=== PATIENT | male | born 1970 | race Caucasian/White ===

== ENCOUNTER → 2016-09-09 | Outpatient (CLI) | payer BC ==
--- NOTE | 2016-09-09 11:57 | NM ---
EXAMINATION: Nuclear medicine myocardial perfusion study with exercise stress test. HISTORY: Chest pain. PROCEDURE: Patient exercised according to Elias protocol for 10 minutes and 7 seconds and achieved maximal hear t rate of 155 beats per minute. Adequate exercise. Following intravenous administration of 8.8 and 31.0 mCi of technetium 99m sestamibi, stress and r est SPECT images including gating imaging was performed. FINDINGS: Stress and rest myocardial SPECT images demonstrates uniform tracer uptake throughout the left ventr icular myocardium. Review of gated images demonstrates normal wall motion, contractility and wall thickening. The left ventricular ejection fraction is 59 %. The left ventricular chamber size is normal. IMPRESSION: 1. No evidence of myocardial ischemia. 2. Normal ventricular chamber size and function with ejection fraction of 59%.
--- NOTE | 2016-09-09 19:05 | PCM.PRNOTE ---
- Free Text/Narrative Note: Procedure: Cardiolite exercise stress test Resting blood pressure 122/86, pulse 89 Patient exercised per Elias protocol 10 minutes and 7 seconds and achieved a maximum heart rate of 155 beats per minute which was 89% of age-predicted maximum heart rate. Mets: 12.8 double product 36282 Resting EKG revealed normal sinus rhythm With exertion, no significant ST-T changes were noted. Test stopped at target heart rate. No complaints of chest pain during exercise or recovery with an unremarkable recovery phase Impression: #1. Negative stress test for ischemic ST-T changes #2. Good exercise tolerance #3. Cardiolite portion of test pending
== END ==
LOC: MW.NM 06:38
PROVIDERS: ATTEND Emergency Medicine
DX: R07.9 Chest pain, unspecified (principal)
CPT/HCPCS: 78452; 93017; A9500

== ENCOUNTER → 2016-09-11 | Outpatient (CLI) | payer BC ==
--- NOTE | 2016-09-11 15:25 | CR ---
EXAMINATION: Two-view chest (PA and Lateral views). HISTORY: Other signs and symptoms. FINDINGS: The trachea is midline. The cardiomediastinal silhouette is within normal limits. No pulmonary infil trates, effusions or pneumothorax. Osseous structures appear unremarkable. IMPRESSION: No acute cardiopulmonary process.
== END ==
LOC: MW.CHFP 13:22
PROVIDERS: ATTEND Emergency Medicine
DX: R50.9 Fever, unspecified (principal); R68.89 Other general symptoms and signs
CPT/HCPCS: 36415; 71020; 71020-26; 85025; 86140; 87804

== ENCOUNTER 2018-03-09 17:36 | Emergency (ER) | payer BC ==
--- NOTE | 2018-03-09 17:52 | EDM.PDOC ---
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 Time Seen by Provider: 03/09/18 17:51 Source of Information: Reports: Patient History Limitations: Reports: No Limitations - History of Present Illness INITIAL COMMENTS - FREE TEXT/NARRATIVE: HISTORY AND PHYSICAL: History of present illness: Patient is a 47-year-old male who presents to the emergency room with complaints of a laceration to his left ulnar surface of his wrist. 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 No current bleeding noted. Patient has full range of motion and strength of the fingers. This does not appear to have any tendon involvement. Patient is unsure of his last tetanus update. Review of systems: As per history of present illness and below otherwise all systems reviewed and negative. Past medical history: As per history of present illness and as reviewed below otherwise noncontributory. Surgical history: As per history of present illness and as reviewed below otherwise noncontributory. Social history: No reported history of drug or alcohol abuse. Family history: As per history of present illness and as reviewed below otherwise noncontributory. Physical exam: General: Well-developed and well-nourished 47-year-old male. Alert and oriented. Nontoxic appearing and in no acute distress. HEENT: Atraumatic, normocephalic, pupils equal and reactive bilaterally, negative for conjunctival pallor or scleral icterus, mucous membranes moist, throat clear, neck supple, nontender, trachea midline. No drooling or trismus noted. No meningeal signs Lungs: Clear to auscultation, breath sounds equal bilaterally, chest nontender. Heart: S1S2, regular rate and rhythm without overt murmur Abdomen: Soft, nondistended, nontender. Negative for masses or hepatosplenomegaly. Negative for costovertebral tenderness. Pelvis: Stable nontender. Genitourinary: Deferred. Rectal: Deferred. Skin: 3.5 cm linear laceration to the left wrist, lateral ulnar surface. Does not appear to have any tendon involvement. Intact, warm, dry. No lesions or rashes noted. Extremities: Moves all extremities per self without difficulty or deficits. Equal and strong grasp of upper extremities. Capillary refill less than 3 seconds. Strong radial pulse bilaterally., negative for cords or calf pain. Neurovascular unremarkable. Neuro: Awake, alert, oriented. Cranial nerves II through XII unremarkable. Cerebellum unremarkable. Motor and sensory unremarkable throughout. Exam nonfocal. Notes: Tdap was updated. Appears to have no tendon involvement. Area was the anesthetized with 1% lidocaine, cleansed with chlorhexidine and wound wash irrigate the area. Patient tolerated well. 5-0 nylon, #6 interrupted sutures applied. Area was cleansed and bacitracin nonstick dressing applied. Diagnostics: None Therapeutics: 1% lidocaine, wound care Prescription: None Impression: Laceration Plan: 1. Rest, ice, elevate the affected extremity. Keep the wound clean and dry. Continue to monitor for signs of infection. Sutures to the removed in 7-10 days. 2. Tylenol and/or ibuprofen as needed for pain management. 3. Follow-up with your primary caregiver in the next 1-2 days. Return to the ED as needed and as discussed. Definitive disposition and diagnosis as appropriate pending reevaluation and review of above. Onset: Today Duration: Minutes: Location: Reports: Upper Extremity, Left Left Wrist Pain Score (Numeric/FACES): 0 - Related Data Allergies Allergy/AdvReac Type Severity Reaction Status Date / Time No Known Allergies Allergy Verified 01/29/15 14:58 Home Meds: Home Meds . [No Known Home Meds] 03/09/18 [History] ED ROS GENERAL - Review of Systems Review Of Systems: ROS reveals no pertinent complaints other than HPI. ED EXAM, SKIN/RASH Exam: See Below (See dictation) ED SKIN PROCEDURES - Laceration/Wound Repair left lateral wrist (ulnar side) Lac/Wound length In cm: 3.5 Appearance: Subcutaneous, Linear Distal NVT: Neuro & Vascular Intact, No Tendon Injury Anesthetic Type: Local Local Anesthesia - Lidocaine (Xylocaine): 1% Plain Local Anesthetic Volume: 3cc Skin Prep: Chlorhexidine (Hibiciens), Saline, Sterile Drape Saline Irrigation (cc's): 50 Exploration/Debridement/Repair: Wound Explored, No Foreign Material Found Closed with: Sutures Suture Size: other (5-0) # of Sutures: 6 Suture Type: Nylon Drain Placement: No Sterile Dressing Applied: Provider Tetanus Status Addressed: Yes Complications: No Course - Vital Signs Last Recorded V/S: Last Vital Signs Temp 97.5 F 03/09/18 17:50 Pulse 98 03/09/18 17:50 Resp 18 03/09/18 17:50 BP 161/106 H 03/09/18 17:50 Pulse Ox 98 03/09/18 17:50 - Orders/Labs/Meds Orders: Active Orders 24 hr Category Date Time Status Vaccines to be Administered [RC] PER UNIT ROUTINE Care 03/09/18 18:01 Active Meds: Medications Discontinued Medications Generic Name Dose Route Start Last Admin Trade Name Tonja PRN Reason Stop Dose Admin Bacitracin 1 dose 03/09/18 18:00 03/09/18 18:27 Bacitracin Oint 1 Gm TOP 03/09/18 18:01 1 dose ONETIME ONE Administration Diphtheria/Tetanus/Acell Pertussis 0.5 ml 03/09/18 18:01 03/09/18 18:25 Adacel IM 03/09/18 18:02 0.5 ml .ONCE ONE Administration Lidocaine HCl 5 ml 03/09/18 18:00 03/09/18 18:25 Xylocaine-Mpf 1% INJECT 03/09/18 18:01 5 ml ONETIME ONE Administration Departure - Departure Time of Disposition: 18:34 Disposition: Home, Self-Care 01 Clinical Impression: Laceration - Discharge Information Instructions: Laceration Care, Adult, [id number] Referrals: PCP,None [Primary Care Provider] - Forms: ED Department Discharge Additional Instructions: The following information is given to patients seen in the emergency department who are being discharged to home. This information is to outline your options for follow-up care. We provide all patients seen in our emergency department with a follow-up referral. The need for follow-up, as well as the timing and circumstances, are variable depending upon the specifics of your emergency department visit. If you don't have a primary care physician on staff, we will provide you with a referral. We always advise you to contact your personal physician following an emergency department visit to inform them of the circumstance of the visit and for follow-up with them and/or the need for any referrals to a consulting specialist. The emergency department will also refer you to a specialist when appropriate. This referral assures that you have the opportunity for follow-up care with a specialist. All of these measure are taken in an effort to provide you with optimal care, which includes your follow-up. Under all circumstances we always encourage you to contact your private physician who remains a resource for coordinating your care. When calling for follow-up care, please make the office aware that this follow-up is from your recent emergency room visit. If for any reason you are refused follow-up, please contact the [facility] Emergency Department at and asked to speak to the emergency department charge nurse. [facility] [address] [place] [id number] 1. Rest, ice, elevate the affected extremity. Keep the wound clean and dry. Continue to monitor for signs of infection. Sutures to the removed in 7-10 days. 2. Tylenol and/or ibuprofen as needed for pain management. 3. Follow-up with your primary caregiver in the next 1-2 days. Return to the ED as needed and as discussed. - My Orders Last 24 Hours: My Active Orders 03/09/18 18:01 Vaccines to be Administered [RC] PER UNIT ROUTINE - Assessment/Plan Last 24 Hours: My Active Orders 03/09/18 18:01 Vaccines to be Administered [RC] PER UNIT ROUTINE
[2018-03-09] MEDS ORDERED: Bacitracin Oint 1 GM U/D Packet TOP ONE (18:00)
[2018-03-09] MEDS ORDERED: Diphtheria,Pertussis(Acell),Tetanus Vaccine 0.5 ML Syringe IM ONE (18:01)
== END 2018-03-09 18:41 | disposition home or self-care (01) ==
LOC: MW.ED 17:36
DX: S61.512A Laceration without foreign body of left wrist, initial encounter (principal); W31.9XXA Contact with unspecified machinery, initial encounter; Z23 Encounter for immunization
CPT/HCPCS: 12002; 90471; 90715; 99282-25; 99283

== ENCOUNTER 2018-09-10 12:43 | Observation (INO) | payer BC ==
[2018-09-10] MEDS ORDERED: Metoprolol Tartrate 5 MG/5 ML SDV ONE (12:53)
[2018-09-10] MEDS ORDERED: Aspirin 81 MG Tab.Chew ONE (12:53)
[2018-09-10] MEDS ORDERED: Aspirin 81 MG Tab.Chew PO ONE (12:54)
[2018-09-10] MEDS ORDERED: Sodium Chloride 0.9% 10 ML Syringe FLUSH PRN (12:54)
[2018-09-10] MEDS ORDERED: Sodium Chloride 0.9% 2.5 ML Syringe FLUSH PRN (12:54)
[2018-09-10] MEDS: Metoprolol Tartrate 5 MG/5 ML SDV IVPUSH SCH ×3 (12:57→13:46)
[2018-09-10] MEDS ORDERED: Sodium Chloride 0.9% 250 ML IV ONE (13:04)
--- NOTE | 2018-09-10 13:15 | EDM.PDOC ---
ED HPI GENERAL MEDICAL PROBLEM - General Chief Complaint: Cardiovascular Problem Stated Complaint: HIGH HEART RATE Time Seen by Provider: 09/10/18 12:44 Source of Information: Reports: Patient History Limitations: Reports: No Limitations - History of Present Illness INITIAL COMMENTS - FREE TEXT/NARRATIVE: History of present illness: []Patient stated he started having palpitations about an hour prior to coming in and just didn't feel right. Stated he has chest discomfort like a "pinching" . Denies shortness of breath, cough, fevers, chills or any pain. He is on metoprolol for hypertension and is followed by Dr. Charles. He feels any abnormalities to come to the ER immediately. Review of systems: As per history of present illness and below otherwise all systems reviewed and negative. Past medical history: As per history of present illness and as reviewed below otherwise noncontributory. Surgical history: As per history of present illness and as reviewed below otherwise noncontributory. Social history: No reported history of drug or alcohol abuse. Family history: As per history of present illness and as reviewed below otherwise noncontributory. Physical exam: General: Well developed, well nourished in NAD HEENT: Atraumatic, normocephalic, pupils reactive, negative for conjunctival pallor or scleral icterus, mucous membranes moist, throat clear, neck supple, nontender, trachea midline. Lungs: Clear to auscultation, breath sounds equal bilaterally, chest nontender. Heart: S1S2, regular, negative for clicks, rubs, or JVD. Abdomen: NABS, Soft, nondistended, nontender. Negative for masses or hepatosplenomegaly. Negative for costovertebral tenderness. Pelvis: Stable nontender. Genitourinary: Deferred. Rectal: Deferred. Extremities: Atraumatic, negative for cords or calf pain. Neurovascular unremarkable. Neuro: Awake, alert, oriented. Cranial nerves II through XII unremarkable. Cerebellum unremarkable. Motor and sensory unremarkable throughout. Exam nonfocal. Skin:warm and dry Diagnostics: EKG, chest x-ray, CBC, chemistry, troponin, drug screen, Therapeutics: Lopressor, aspirin, nitroglycerin, IV fluid ED Course: Improved, chest pain with nitroglycerin Consult Dr. Matthews accepts patient for observation on telemetry Impression: Chest pain, controlled hypertension Prescriptions: Plan: Admit rule out RI Definitive disposition and diagnosis as appropriate pending reevaluation and review of above. Chest Pain Score (Numeric/FACES): 2 - Related Data Allergies Allergy/AdvReac Type Severity Reaction Status Date / Time No Known Allergies Allergy Verified 09/10/18 12:52 Home Meds: Home Meds Metoprolol Succinate 50 mg PO DAILY 09/10/18 [History] Past Medical History - Past Health History Medical/Surgical History: Denies Medical/Surgical History HEENT History: Reports: None Cardiovascular History: Reports: Hypertension Respiratory History: Reports: None Gastrointestinal History: Reports: None Genitourinary History: Reports: None Musculoskeletal History: Reports: None Neurological History: Reports: None Psychiatric History: Reports: None Endocrine/Metabolic History: Reports: None Hematologic History: Reports: None Immunologic History: Reports: None Oncologic (Cancer) History: Reports: None Dermatologic History: Reports: None - Infectious Disease History Infectious Disease History: Reports: None - Past Surgical History Head Surgeries/Procedures: Reports: None Social & Family History - Family History Family Medical History: Noncontributory - Tobacco Use Smoking Status *Q: Never Smoker - Caffeine Use Caffeine Use: Reports: Coffee - Recreational Drug Use Recreational Drug Use: No ED ROS GENERAL - Review of Systems Review Of Systems: ROS reveals no pertinent complaints other than HPI. ED EXAM, GENERAL - Physical Exam Exam: See Below (See HPI) Course - Vital Signs Last Recorded V/S: Last Vital Signs Temp 97.9 F 09/10/18 12:57 Pulse 73 09/10/18 13:45 Resp 18 09/10/18 13:45 BP 114/74 09/10/18 13:45 Pulse Ox 98 09/10/18 13:45 - Orders/Labs/Meds Orders: Active Orders 24 hr Category Date Time Status Patient Status [ADT] Stat ADT 09/10/18 13:55 Active Cardiac Monitoring [RC] . DIRECTED Care 09/10/18 12:53 Active EKG Documentation Completion [RC] STAT Care 09/10/18 12:53 Active DRUG SCREEN, URINE [URCHEM] Stat Lab 09/10/18 12:53 Ordered Nitroglycerin [Nitrostat] Med 09/10/18 13:11 Active 0.4 mg SL Q5M PRN Sodium Chloride 0.9% [Saline Flush] Med 09/10/18 12:54 Active 10 ml FLUSH ASDIRECTED PRN Sodium Chloride 0.9% [Saline Flush] Med 09/10/18 12:54 Active 2.5 ml FLUSH ASDIRECTED PRN Saline Lock Insert [OM.PC] Stat Oth 09/10/18 12:53 Ordered Medication Orders Acetaminophen (Tylenol) 650 mg PO Q4H PRN PRN Reason: Pain (mild 1-3) Nitroglycerin (Nitrostat) 0.4 mg SL Q5M PRN PRN Reason: Chest Pain Last Admin: 09/10/18 13:22 Dose: 0.4 mg Admin: 09/10/18 13:16 Dose: 0.4 mg Ondansetron HCl (Zofran) 4 mg IVPUSH Q4H PRN PRN Reason: Nausea Sodium Chloride (Saline Flush) 10 ml FLUSH ASDIRECTED PRN PRN Reason: Keep Vein Open Last Admin: 09/10/18 12:59 Dose: 10 ml Sodium Chloride (Saline Flush) 2.5 ml FLUSH ASDIRECTED PRN PRN Reason: Keep Vein Open Last Admin: 09/10/18 12:59 Dose: 2.5 ml Labs: Laboratory Tests 09/10/18 09/10/18 Range/Units 12:55 12:55 WBC 7.68 (4.0-11.0) K/uL RBC 5.33 (4.50-5.90) M/uL Hgb 16.3 (13.0-17.0) g/dL Hct 48.4 (38.0-50.0) % MCV 90.8 (80.0-98.0) fL MCH 30.6 (27.0-32.0) pg MCHC 33.7 (31.0-37.0) g/dL RDW Std Deviation 44.8 (28.0-62.0) fl RDW Coeff of Nakia 14 (11.0-15.0) % Plt Count 203 (150-400) K/uL MPV 10.40 (7.40-12.00) fL Neut % (Auto) 62.3 (48.0-80.0) % Lymph % (Auto) 27.2 (16.0-40.0) % [place] % (Auto) 5.9 (0.0-15.0) % Eos % (Auto) 3.9 (0.0-7.0) % Baso % (Auto) 0.7 (0.0-1.5) % Neut # (Auto) 4.8 (1.4-5.7) K/uL Lymph # (Auto) 2.1 (0.6-2.4) K/uL [place] # (Auto) 0.5 (0.0-0.8) K/uL Eos # (Auto) 0.3 (0.0-0.7) K/uL Baso # (Auto) 0.1 (0.0-0.1) K/uL Nucleated RBC % 0.0 /100WBC Nucleated RBCs # 0 K/uL Sodium 144 (136-148) mmol/L Potassium 3.9 (3.5-5.1) mmol/L Chloride 107 (98-107) mmol/L Carbon Dioxide 26.3 (21.0-32.0) mmol/L BUN 16 (7.0-18.0) mg/dL Creatinine 1.2 (0.8-1.3) mg/dL Est Cr Clr Drug Dosing 73.63 mL/min Estimated GFR (MDRD) > 60.0 ml/min Glucose 140 H (74-106) mg/dL Calcium 9.1 (8.5-10.1) mg/dL Total Bilirubin 1.4 H (0.2-1.0) mg/dL AST 20 (15-37) IU/L ALT 31 (14-63) IU/L Alkaline Phosphatase 110 (46-116) U/L Troponin I < 0.050 (0.000-0.056) ng/mL Total Protein 8.2 (6.4-8.2) g/dL Albumin 4.2 (3.4-5.0) g/dL Globulin 4.0 (2.6-4.0) g/dL Albumin/Globulin Ratio 1.0 (0.9-1.6) Ethyl Alcohol <3 mg/dL Meds: Medications Generic Name Dose Route Start Last Admin Trade Name Freq PRN Reason Stop Dose Admin Acetaminophen 650 mg 09/10/18 14:38 Tylenol PO Q4H PRN Pain (mild 1-3) Nitroglycerin 0.4 mg 09/10/18 13:11 09/10/18 13:22 Nitrostat SL 0.4 mg Q5M PRN Administration Chest Pain Ondansetron HCl 4 mg 09/10/18 14:38 Zofran IVPUSH Q4H PRN Nausea Sodium Chloride 10 ml 09/10/18 12:54 09/10/18 12:59 Saline Flush FLUSH 10 ml ASDIRECTED PRN Administration Keep Vein Open Sodium Chloride 2.5 ml 09/10/18 12:54 09/10/18 12:59 Saline Flush FLUSH 2.5 ml ASDIRECTED PRN Administration Keep Vein Open Discontinued Medications Generic Name Dose Route Start Last Admin Trade Name Freq PRN Reason Stop Dose Admin Aspirin 324 mg 09/10/18 12:54 09/10/18 12:59 Aspirin PO 09/10/18 12:55 324 mg ONETIME ONE Administration Aspirin Confirm 09/10/18 12:53 09/10/18 13:00 Aspirin Administered 09/10/18 12:54 Not Given Dose 324 mg .ROUTE .STK-MED ONE Sodium Chloride 250 mls @ 999 mls/hr 09/10/18 13:04 09/10/18 13:06 Normal Saline IV 09/10/18 13:19 999 mls/hr .Bolus ONE Administration Metoprolol Tartrate 5 mg 09/10/18 13:00 09/10/18 13:46 Lopressor IVPUSH 09/10/18 13:11 Not Given Q5M JARED Metoprolol Tartrate Confirm 09/10/18 12:53 09/10/18 13:00 Lopressor Administered 09/10/18 12:54 Not Given Dose 5 mg .ROUTE .STK-MED ONE Morphine Sulfate 2 mg 09/10/18 13:27 09/10/18 13:34 Morphine IVPUSH 09/10/18 13:28 2 mg ONETIME ONE Administration Ondansetron HCl 4 mg 09/10/18 13:27 09/10/18 13:34 Zofran IVPUSH 09/10/18 13:28 4 mg ONETIME ONE Administration Departure - Departure Time of Disposition: 15:12 Disposition: Refer to Observation Condition: Good Clinical Impression: Chest pain Qualifiers: Chest pain type: unspecified Qualified Code(s): R07.9 - Chest pain, unspecified - My Orders Last 24 Hours: My Active Orders 09/10/18 12:53 Cardiac Monitoring [RC] . DIRECTED EKG Documentation Completion [RC] STAT DRUG SCREEN, URINE [URCHEM] Stat Saline Lock Insert [OM.PC] Stat 09/10/18 12:54 Sodium Chloride 0.9% [Saline Flush] 10 ml FLUSH ASDIRECTED PRN Sodium Chloride 0.9% [Saline Flush] 2.5 ml FLUSH ASDIRECTED PRN 09/10/18 13:11 Nitroglycerin [Nitrostat] 0.4 mg SL Q5M PRN 09/10/18 13:55 Patient Status [ADT] Stat - Assessment/Plan Last 24 Hours: My Active Orders 09/10/18 12:53 Cardiac Monitoring [RC] . DIRECTED EKG Documentation Completion [RC] STAT DRUG SCREEN, URINE [URCHEM] Stat Saline Lock Insert [OM.PC] Stat 09/10/18 12:54 Sodium Chloride 0.9% [Saline Flush] 10 ml FLUSH ASDIRECTED PRN Sodium Chloride 0.9% [Saline Flush] 2.5 ml FLUSH ASDIRECTED PRN 09/10/18 13:11 Nitroglycerin [Nitrostat] 0.4 mg SL Q5M PRN 09/10/18 13:55 Patient Status [ADT] Stat
[2018-09-10] MEDS: Nitroglycerin 0.4 MG Tab.SL SL PRN ×2 (13:16→13:22)
[2018-09-10] MEDS ORDERED: Ondansetron 4 MG/2 ML SDV IVPUSH ONE (13:27)
[2018-09-10] MEDS ORDERED: Morphine 2 MG/ML Syringe IVPUSH ONE (13:27)
--- NOTE | 2018-09-10 13:47 | CR ---
EXAMINATION: Portable chest radiograph. HISTORY: Shortness of breath. FINDINGS: The trachea is midline. The cardiomediastinal silhouette is within normal limits. No pulmonary infiltrates, effusions or pneumothorax. Osseous structures appear unremarkable. IMPRESSION: No acute cardiopulmonary process.
[2018-09-10 13:50] LABS: CHLORIDE,CL 107 mmol/L (98-107); SODIUM,NA 144 mmol/L (136-148)
[2018-09-10] MEDS ORDERED: Acetaminophen 325 MG Tab PO PRN (14:38)
[2018-09-10] MEDS ORDERED: Ondansetron 4 MG/2 ML SDV IVPUSH PRN (14:38)
--- NOTE | 2018-09-10 14:56 | PCM.HP ---
H&P History of Present Illness - General Date of Service: 09/10/18 Admit Problem/Dx: Admission Diagnosis/Problem Admission Diagnosis/Problem Chest pain Source of Information: Patient, Family ( at bedside) History Limitations: Reports: No Limitations - History of Present Illness Initial Comments - Free Text/Narative: This 48 year old male with pmh of HTN presented to the ED today with complaints of palpitations and chest heaviness. He reports he was just at work standing around and started having racing heart rate and didn't feel well. Reports feeling a little lightheaded with cold hands and having a heaviness in his chest. He denies radiation of heaviness, no jaw pain or arm pain, no shortness of breath or diaphoresis. He denies anything helping until he got medication in the ED. He reports he was diagnoses with HTN with his PCP approximately 6 months ago and was started on Metoprolol with subsequent dosage increase, because he noted BP elevated throughout the day. He reports he still notes BP elevated in the evenings more than the mornings. He reports he has been feeling well prior to the no signs of infection, reports mild sinus congestion, but this is intermittent for him. Denies taking any over the counter medications or energy drinks. No history of recreational drug use. He reports drinking 3-4 alcoholic beverages nightly, most nights. He reports having these intermittent palpitations at rest, but it has never made him feel like this and usually goes away and this time it didn't. He reports having a stress test approximately 3 years ago here, and reports it was normal. He denies known history of DM, CAD. He reports both parents had CVAs, his father has know afib with CVA. His fathers brother had fatal SC in his 40s. Extensive family history of DM. He reports he chews tobacco, 1 tin every 2-3 days. In the ED CBC WNL. Bilirubin slightly elevated at 1.4. Glucose 140. Alcohol level negative. EKG revealed ST with rates in 120s. No afib noted. He was treated with Nitro x2, Lopressor 5 mg x 2 Morphine 2 mg and NS bolus of 250 ml. Heart rate improved to 70s, SR and BP decreased to 114/74 from 171/106 on arrival to the ED. Chest xray negative. Chest Pain Score (Numeric/FACES): 2 - Related Data Allergies/Adverse Reactions: Allergies Allergy/AdvReac Type Severity Reaction Status Date / Time No Known Allergies Allergy Verified 09/10/18 12:52 Home Medications: Home Meds Metoprolol Succinate 50 mg PO DAILY 09/10/18 [History] Past Medical History - Past Health History Medical/Surgical History: Denies Medical/Surgical History HEENT History: Reports: None Cardiovascular History: Reports: Hypertension. Denies: Afib, Blood Clots/VTE/ DVT, CAD, High Cholesterol Respiratory History: Reports: None. Denies: Asthma, COPD Gastrointestinal History: Reports: None. Denies: GERD, GI Bleed Genitourinary History: Reports: None. Denies: Chronic Renal Insuffiency Musculoskeletal History: Reports: None Neurological History: Reports: None. Denies: CVA, TIA Psychiatric History: Reports: None Endocrine/Metabolic History: Reports: None. Denies: Diabetes, Type II Hematologic History: Reports: None Immunologic History: Reports: None Oncologic (Cancer) History: Reports: None Dermatologic History: Reports: None - Infectious Disease History Infectious Disease History: Reports: None - Past Surgical History Head Surgeries/Procedures: Reports: None Cardiovascular Surgical History: Reports: None Respiratory Surgical History: Reports: None Social & Family History - Family History Family Medical History: Noncontributory - Tobacco Use Smoking Status *Q: Never Smoker Tobacco Use Within Last Twelve Months: Smokeless Tobacco Packs/Tins Daily: 0.2 - Caffeine Use Caffeine Use: Reports: Coffee - Alcohol Use Alcohol Use History: Yes Days Per Week of Alcohol Use: 5 Number of Drinks Per Day: 4 Total Drinks Per Week: 20 Alcohol Use in Last Twelve Months: No Alcohol Use Frequency: Daily - Recreational Drug Use Recreational Drug Use: No - Living Situation & Occupation Living situation: Reports: 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 Denies: Fever, Chills, Malaise HEENT: Reports: Sinus Congestion, Other (tingling to L face "like it is asleep" started since he was in the ED). Denies: Ear Pain, Headaches, Sore Throat, Vertigo Pulmonary: Reports: No Symptoms. Denies: Shortness of Breath Cardiovascular: Reports: Chest Pain (heaviness, now gone), Palpitations ( initially, now nothing.). Denies: Edema, Lightheadedness Gastrointestinal: Reports: No Symptoms. Denies: Abdominal Pain, Black Stool, Bloody Stool, Nausea, Vomiting Genitourinary: Reports: No Symptoms. Denies: Dysuria, Frequency, Burning Musculoskeletal: Reports: No Symptoms. Denies: Neck Pain Skin: Reports: No Symptoms Psychiatric: Reports: No Symptoms Neurological: Reports: Tingling (L face with slight numbness.) Hematologic/Lymphatic: Reports: No Symptoms Immunologic: Reports: No Symptoms Exam - Exam Exam: See Below - Vital Signs Vital Signs: Last Vital Signs Temp 97.9 F 09/10/18 12:57 Pulse 73 09/10/18 13:45 Resp 18 09/10/18 13:45 BP 114/74 09/10/18 13:45 Pulse Ox 98 09/10/18 13:45 Weight: 77.111 kg - Exam General: Alert, Oriented, Cooperative HEENT: Conjunctiva Clear, Mucosa Moist & [place], Posterior Pharynx Clear Neck: Supple, Trachea Midline Lungs: Clear to Auscultation, Normal Respiratory Effort Cardiovascular: Regular Rate, Regular Rhythm, Normal S1, Normal S2. No: Tachycardia, Systolic Murmur GI/Abdominal Exam: Normal Bowel Sounds, Soft, Non-Tender, No Distention Back Exam: Normal Inspection, Full Range of Motion Extremities: Normal Inspection, Normal Range of Motion, Non-Tender, No Pedal Edema Skin: Warm, Dry Neurological: Cranial Nerves Intact, Reflexes Equal Bilateral, Normal Speech Neuro Extensive - Motor, Sensory, Reflexes: CN II-XII Intact, Normal Gait, Normal Reflexes. No: Tongue Deviation (L), Tongue Deviation (R), Facial palsy ( L), Facial Palsy (R) Psychiatric: Alert, Normal Affect, Normal Mood - Patient Data Lab Results Last 24 hrs: Laboratory Results - last 24 hr 09/10/18 09/10/18 Range/Units 12:55 12:55 WBC 7.68 (4.0-11.0) K/uL RBC 5.33 (4.50-5.90) M/uL Hgb 16.3 (13.0-17.0) g/dL Hct 48.4 (38.0-50.0) % MCV 90.8 (80.0-98.0) fL MCH 30.6 (27.0-32.0) pg MCHC 33.7 (31.0-37.0) g/dL RDW Std Deviation 44.8 (28.0-62.0) fl RDW Coeff of [place] 14 (11.0-15.0) % Plt Count 203 (150-400) K/uL MPV 10.40 (7.40-12.00) fL Neut % (Auto) 62.3 (48.0-80.0) % Lymph % (Auto) 27.2 (16.0-40.0) % [place] % (Auto) 5.9 (0.0-15.0) % Eos % (Auto) 3.9 (0.0-7.0) % Baso % (Auto) 0.7 (0.0-1.5) % Neut # (Auto) 4.8 (1.4-5.7) K/uL Lymph # (Auto) 2.1 (0.6-2.4) K/uL [place] # (Auto) 0.5 (0.0-0.8) K/uL Eos # (Auto) 0.3 (0.0-0.7) K/uL Baso # (Auto) 0.1 (0.0-0.1) K/uL Nucleated RBC % 0.0 /100WBC Nucleated RBCs # 0 K/uL Sodium 144 (136-148) mmol/L Potassium 3.9 (3.5-5.1) mmol/L Chloride 107 (98-107) mmol/L Carbon Dioxide 26.3 (21.0-32.0) mmol/L BUN 16 (7.0-18.0) mg/dL Creatinine 1.2 (0.8-1.3) mg/dL Est Cr Clr Drug Dosing 73.63 mL/min Estimated GFR (MDRD) > 60.0 ml/min Glucose 140 H (74-106) mg/dL Calcium 9.1 (8.5-10.1) mg/dL Total Bilirubin 1.4 H (0.2-1.0) mg/dL AST 20 (15-37) IU/L ALT 31 (14-63) IU/L Alkaline Phosphatase 110 (46-116) U/L Troponin I < 0.050 (0.000-0.056) ng/mL Total Protein 8.2 (6.4-8.2) g/dL Albumin 4.2 (3.4-5.0) g/dL Globulin 4.0 (2.6-4.0) g/dL Albumin/Globulin Ratio 1.0 (0.9-1.6) Ethyl Alcohol <3 mg/dL Result Diagrams: 09/10/18 12:55 09/10/18 12:55 EKG INTERPRETATION EKG Date: 09/10/18 Rhythm: Other (ST) Rate (Beats/Min): 120 P-Wave: Present QRS: Normal ST-T: Normal QT: Normal - Problem List (1) Palpitations SNOMED Code(s): 45745104 ICD Code: R00.2 - PALPITATIONS Status: Acute Current Visit: Yes (2) Chest heaviness SNOMED Code(s): 512994556, 458388545 ICD Code: R07.89 - OTHER CHEST PAIN Status: Acute Current Visit: Yes (3) HTN (hypertension) SNOMED Code(s): 17385754 ICD Code: I10 - ESSENTIAL (PRIMARY) HYPERTENSION Status: Chronic Current Visit: Yes Qualifiers: Hypertension type: essential hypertension Qualified Code(s): I10 - Essential (primary) hypertension Problem List Initiated/Reviewed/Updated: Yes Orders Last 24hrs: Active Orders 24 hr Category Date Time Status Patient Status [ADT] Stat ADT 09/10/18 13:55 Active Antiembolic Devices [RC] PER UNIT ROUTINE Care 09/10/18 14:39 Ordered Cardiac Monitoring [RC] . DIRECTED Care 09/10/18 12:53 Active EKG Documentation Completion [RC] STAT Care 09/10/18 12:53 Active Intake and Output [RC] QSHIFT Care 09/10/18 14:39 Ordered Oxygen Therapy [RC] PRN Care 09/10/18 14:38 Ordered Telemetry Monitoring [Cardiac Monitoring] [RC] . Care 09/10/18 14:43 Ordered DIRECTED Up With Assistance [RC] ASDIRECTED Care 09/10/18 14:38 Ordered VTE/DVT Education [RC] PER UNIT ROUTINE Care 09/10/18 14:38 Ordered Vital Signs [RC] Q4H Care 09/10/18 14:38 Ordered Heart Healthy Diet [DIET] Diet 09/10/18 Lunch Ordered Head wo Cont [CT] Stat Exams 09/10/18 14:38 Ordered DRUG SCREEN, URINE [URCHEM] Stat Lab 09/10/18 12:53 Ordered GLYCOSYLATED HEMOGLOBIN,HGBA1C [CHEM] Routine Lab 09/10/18 14:38 Ordered LIPID PANEL [CHEM] AM Lab 09/11/18 05:11 Ordered TROPONIN I [CHEM] Q6H Lab 09/10/18 19:00 Ordered TROPONIN I [CHEM] Q6H Lab 09/11/18 01:00 Ordered Acetaminophen [Tylenol] Med 09/10/18 14:38 Ordered 650 mg PO Q4H PRN Nitroglycerin [Nitrostat] Med 09/10/18 13:11 Active 0.4 mg SL Q5M PRN Ondansetron [Zofran] Med 09/10/18 14:38 Ordered 4 mg IVPUSH Q4H PRN Sodium Chloride 0.9% [Saline Flush] Med 09/10/18 12:54 Active 10 ml FLUSH ASDIRECTED PRN Sodium Chloride 0.9% [Saline Flush] Med 09/10/18 12:54 Active 2.5 ml FLUSH ASDIRECTED PRN Saline Lock Insert [OM.PC] Stat Oth 09/10/18 12:53 Ordered Sequential Compression Device [OM.PC] Per Unit Routine Oth 09/10/18 14:39 Ordered Resuscitation Status Routine Resus Stat 09/10/18 14:38 Ordered Medication Orders Acetaminophen (Tylenol) 650 mg PO Q4H PRN PRN Reason: Pain (mild 1-3) Nitroglycerin (Nitrostat) 0.4 mg SL Q5M PRN PRN Reason: Chest Pain Last Admin: 09/10/18 13:22 Dose: 0.4 mg Admin: 09/10/18 13:16 Dose: 0.4 mg Ondansetron HCl (Zofran) 4 mg IVPUSH Q4H PRN PRN Reason: Nausea Sodium Chloride (Saline Flush) 10 ml FLUSH ASDIRECTED PRN PRN Reason: Keep Vein Open Last Admin: 09/10/18 12:59 Dose: 10 ml Sodium Chloride (Saline Flush) 2.5 ml FLUSH ASDIRECTED PRN PRN Reason: Keep Vein Open Last Admin: 09/10/18 12:59 Dose: 2.5 ml Assessment/Plan Comment:: This 48 year old male admitted with palpitations and chest heaviness 1. Palpitations/chest heaviness: HR now controlled after Nitro and Lopressor. Will monitor on telemetry. Trend troponins. Obtain A1c and lipid panel. Will set up for outpatient placement for event monitor to evaluate palpitations. ASA daily 2. HTN: Continue Metoprolol XR 50 mg. 3. Facial tingling: No focal neurologic deficit. Will obtain head CT. VTE prophylaxis: SCDs Dispo: 1 day
[2018-09-10 15:23] LABS: HEMOGLOBIN A1C 5.7 % (4.5-6.2)
--- NOTE | 2018-09-10 15:56 | CT ---
EXAMINATION: Non contrast CT head. Coronal and sagittal reformats. HISTORY: Artificial numbness FINDINGS: No evidence of intra or extra axial hemorrhage, mass, midline shift, hydrocephalus or edema. No hypoattenuation changes in the major vascular territories to suggest acute infarct. No abnormal intracranial calcifications are detected. No evidence of substantial vascular calcifications. Mucous retention cyst within the left maxillary sinus, mild mucosal thickening within the remaining paranasal sinuses. Mastoid air cells and middle ears are clear. Pituitary fossa appears unremarkable. Calvarium is intact. No evidence of skull fracture. Incomplete fusion of the anterior C1 arch. IMPRESSION: No acute intracranial findings.
[2018-09-10] MEDS: Metoprolol Succinate 25 MG Tab.ER PO SCH (20:28)
[2018-09-11] MEDS: Metoprolol Succinate 25 MG Tab.ER PO SCH (08:59)
[2018-09-11] MEDS ORDERED: Fluticasone Propionate Nasal Spray 16 GM Bottle NASBOTH SCH (09:00)
--- NOTE | 2018-09-11 12:03 | PCM.DCSUM1 ---
<Lisette Jason - Last Filed: 09/11/18 12:19> Discharge Summary - Hospital Course Free Text/Narrative:: Admission Date: 09/10/18 Discharge Date: 09/11/18 Admission Diagnosis: 1. Palpitations, chest heaviness 2. HTN 3. Facial tingling Discharge Diagnosis: 1. Palpitations, chest heaviness- resolved 2. HTN- improved 3. Facial tingling- resolved Procedures: None Consults: None Hospital Course: The patient is a 48-year-old male who presented to the ER yesterday with chest heaviness and palpitations as well as facial tingling. In the ER, he had initial negative troponin. EKG showed sinus tachycardia in the 120s and his blood pressure was 171/106. He was given 2 doses of nitroglycerin , 2 doses of Lopressor, and morphine. His chest pain improved, his heart rate dropped down to 70, and his BP improved to 114/74. CXR was negative for acute cardiopulmonary process. He was admitted to the medical surgical floor for observation. On the floor, his troponin were trended and were negative 3. Lipid panel was done and was within normal limits. He was continued on his home metoprolol, but watched on telemetry with no further episodes of tachycardia or palpitations per patient. For his facial tingling, head CT was done which showed no acute intracranial process. By day of discharge, he no longer had any chest pain, his facial tingling had resolved and his blood pressure had improved. He'll be sent home on ziopatch to monitor how often he develops tachycardia or look for other rhythm issues. Disposition: Home Discharge Condition: Vitals stable, tolerating oral diet abdomen without difficulty. No further episodes chest pain or facial tingling Discharge Instructions: Cardiac diet. Activity as tolerated, take medications as prescribed. Symptoms to report to physician include fever, chills, chest pain, shortness of breath, abdominal pain, edema, erythema, drainage, discharge , or not improving as expected. He will go home on 14 days. Please follow up with her primary care provider for results and management Discharge Medications: Metoprolol Succinate 25 mg PO BID Aspirin [Adult Aspirin] 81 mg PO DAILY Follow-up: PCP Diagnosis: Stroke: No - Discharge Data Discharge Date: 09/11/18 Discharge Disposition: Home, Self-Care 01 Condition: Fair - Patient Instructions Diet: Heart Healthy Diet Activity: As Tolerated Driving: May Drive Today Showering/Bathing: May Shower Notify Provider of: Fever, Increased Pain, Swelling and Redness, Drainage, Nausea and/or Vomiting Other/Special Instructions: Additional symptoms include chest pain, shortness of breath, abdominal pain, or palpitations. You will be set up with a heart monitor (Ziopatch). - Discharge Plan *PRESCRIPTION DRUG MONITORING PROGRAM REVIEWED*: No *COPY OF PRESCRIPTION DRUG MONITORING REPORT IN PATIENT MELODIE: No Prescriptions/Med Rec: Aspirin [Adult Aspirin] 81 mg PO DAILY 30 Days #30 tablet. Home Medications: Home Meds Metoprolol Succinate 25 mg PO BID 09/10/18 [History] Aspirin [Adult Aspirin] 81 mg PO DAILY 30 Days #30 tablet. 09/11/18 [Rx] Patient Handouts: Aspirin, ASA oral tablets Referrals: [facility] [Outside] - Discharge Summary/Plan Comment DC Time >30 min.: No - Patient Data Vitals - Most Recent: Last Vital Signs Temp 97.8 F 09/11/18 08:00 Pulse 51 L 09/11/18 08:59 Resp 14 09/11/18 08:00 BP 121/78 09/11/18 08:00 Pulse Ox 97 09/11/18 08:00 Weight - Most Recent: 77.111 kg I&O - Last 24 hours: Intake & Output 09/10/18 09/11/18 09/11/18 22:59 06:59 14:59 Intake Total 1500 Output Total 225 Balance 1275 Lab Results - Last 24 hrs: Laboratory Results - last 24 hr 09/10/18 09/10/18 09/10/18 Range/Units 12:55 12:55 12:55 WBC 7.68 (4.0-11.0) K/uL RBC 5.33 (4.50-5.90) M/uL Hgb 16.3 (13.0-17.0) g/dL Hct 48.4 (38.0-50.0) % MCV 90.8 (80.0-98.0) fL MCH 30.6 (27.0-32.0) pg MCHC 33.7 (31.0-37.0) g/dL RDW Std Deviation 44.8 (28.0-62.0) fl RDW Coeff of Nakia 14 (11.0-15.0) % Plt Count 203 (150-400) K/uL MPV 10.40 (7.40-12.00) fL Neut % (Auto) 62.3 (48.0-80.0) % Lymph % (Auto) 27.2 (16.0-40.0) % Garfield % (Auto) 5.9 (0.0-15.0) % Eos % (Auto) 3.9 (0.0-7.0) % Baso % (Auto) 0.7 (0.0-1.5) % Neut # (Auto) 4.8 (1.4-5.7) K/uL Lymph # (Auto) 2.1 (0.6-2.4) K/uL Garfield # (Auto) 0.5 (0.0-0.8) K/uL Eos # (Auto) 0.3 (0.0-0.7) K/uL Baso # (Auto) 0.1 (0.0-0.1) K/uL Nucleated RBC % 0.0 /100WBC Nucleated RBCs # 0 K/uL Sodium 144 (136-148) mmol/L Potassium 3.9 (3.5-5.1) mmol/L Chloride 107 (98-107) mmol/L Carbon Dioxide 26.3 (21.0-32.0) mmol/L BUN 16 (7.0-18.0) mg/dL Creatinine 1.2 (0.8-1.3) mg/dL Est Cr Clr Drug Dosing 73.63 mL/min Estimated GFR (MDRD) > 60.0 ml/min Glucose 140 H (74-106) mg/dL Hemoglobin A1c 5.7 (4.5-6.2) % Calcium 9.1 (8.5-10.1) mg/dL Total Bilirubin 1.4 H (0.2-1.0) mg/dL AST 20 (15-37) IU/L ALT 31 (14-63) IU/L Alkaline Phosphatase 110 (46-116) U/L Troponin I < 0.050 (0.000-0.056) ng/mL Total Protein 8.2 (6.4-8.2) g/dL Albumin 4.2 (3.4-5.0) g/dL Globulin 4.0 (2.6-4.0) g/dL Albumin/Globulin Ratio 1.0 (0.9-1.6) Triglycerides (0-200) mg/dL Cholesterol (50-200) mg/dL LDL Cholesterol, Calc (60-180) mg/dL VLDL Cholesterol (5-55) mg/dL HDL Cholesterol (40-60) mg/dL Cholesterol/HDL Ratio (3.3-6.0) Urine Opiates Screen (NEGATIVE) Ur Oxycodone Screen (NEGATIVE) Urine Methadone Screen (NEGATIVE) Ur Barbiturates Screen (NEGATIVE) Ur Phencyclidine Scrn (NEGATIVE) Ur Amphetamine Screen (NEGATIVE) U Methamphetamines Scrn (NEGATIVE) U Benzodiazepines Scrn (NEGATIVE) U Cocaine Metab Screen (NEGATIVE) U Marijuana (THC) Screen (NEGATIVE) Ethyl Alcohol <3 mg/dL 09/10/18 09/11/18 09/11/18 Range/Units 18:56 01:05 05:32 WBC (4.0-11.0) K/uL RBC (4.50-5.90) M/uL Hgb (13.0-17.0) g/dL Hct (38.0-50.0) % MCV (80.0-98.0) fL MCH (27.0-32.0) pg MCHC (31.0-37.0) g/dL RDW Std Deviation (28.0-62.0) fl RDW Coeff of Nakia (11.0-15.0) % Plt Count (150-400) K/uL MPV (7.40-12.00) fL Neut % (Auto) (48.0-80.0) % Lymph % (Auto) (16.0-40.0) % Garfield % (Auto) (0.0-15.0) % Eos % (Auto) (0.0-7.0) % Baso % (Auto) (0.0-1.5) % Neut # (Auto) (1.4-5.7) K/uL Lymph # (Auto) (0.6-2.4) K/uL Garfield # (Auto) (0.0-0.8) K/uL Eos # (Auto) (0.0-0.7) K/uL Baso # (Auto) (0.0-0.1) K/uL Nucleated RBC % /100WBC Nucleated RBCs # K/uL Sodium (136-148) mmol/L Potassium (3.5-5.1) mmol/L Chloride (98-107) mmol/L Carbon Dioxide (21.0-32.0) mmol/L BUN (7.0-18.0) mg/dL Creatinine (0.8-1.3) mg/dL Est Cr Clr Drug Dosing mL/min Estimated GFR (MDRD) ml/min Glucose (74-106) mg/dL Hemoglobin A1c (4.5-6.2) % Calcium (8.5-10.1) mg/dL Total Bilirubin (0.2-1.0) mg/dL AST (15-37) IU/L ALT (14-63) IU/L Alkaline Phosphatase (46-116) U/L Troponin I < 0.050 < 0.050 (0.000-0.056) ng/mL Total Protein (6.4-8.2) g/dL Albumin (3.4-5.0) g/dL Globulin (2.6-4.0) g/dL Albumin/Globulin Ratio (0.9-1.6) Triglycerides 109 (0-200) mg/dL Cholesterol 167 (50-200) mg/dL LDL Cholesterol, Calc 77 (60-180) mg/dL VLDL Cholesterol 21 (5-55) mg/dL HDL Cholesterol 68 H (40-60) mg/dL Cholesterol/HDL Ratio 2.5 L (3.3-6.0) Urine Opiates Screen (NEGATIVE) Ur Oxycodone Screen (NEGATIVE) Urine Methadone Screen (NEGATIVE) Ur Barbiturates Screen (NEGATIVE) Ur Phencyclidine Scrn (NEGATIVE) Ur Amphetamine Screen (NEGATIVE) U Methamphetamines Scrn (NEGATIVE) U Benzodiazepines Scrn (NEGATIVE) U Cocaine Metab Screen (NEGATIVE) U Marijuana (THC) Screen (NEGATIVE) Ethyl Alcohol mg/dL 09/11/18 Range/Units 07:40 WBC (4.0-11.0) K/uL RBC (4.50-5.90) M/uL Hgb (13.0-17.0) g/dL Hct (38.0-50.0) % MCV (80.0-98.0) fL MCH (27.0-32.0) pg MCHC (31.0-37.0) g/dL RDW Std Deviation (28.0-62.0) fl RDW Coeff of Nakia (11.0-15.0) % Plt Count (150-400) K/uL MPV (7.40-12.00) fL Neut % (Auto) (48.0-80.0) % Lymph % (Auto) (16.0-40.0) % Garfield % (Auto) (0.0-15.0) % Eos % (Auto) (0.0-7.0) % Baso % (Auto) (0.0-1.5) % Neut # (Auto) (1.4-5.7) K/uL Lymph # (Auto) (0.6-2.4) K/uL Garfield # (Auto) (0.0-0.8) K/uL Eos # (Auto) (0.0-0.7) K/uL Baso # (Auto) (0.0-0.1) K/uL Nucleated RBC % /100WBC Nucleated RBCs # K/uL Sodium (136-148) mmol/L Potassium (3.5-5.1) mmol/L Chloride (98-107) mmol/L Carbon Dioxide (21.0-32.0) mmol/L BUN (7.0-18.0) mg/dL Creatinine (0.8-1.3) mg/dL Est Cr Clr Drug Dosing mL/min Estimated GFR (MDRD) ml/min Glucose (74-106) mg/dL Hemoglobin A1c (4.5-6.2) % Calcium (8.5-10.1) mg/dL Total Bilirubin (0.2-1.0) mg/dL AST (15-37) IU/L ALT (14-63) IU/L Alkaline Phosphatase (46-116) U/L Troponin I (0.000-0.056) ng/mL Total Protein (6.4-8.2) g/dL Albumin (3.4-5.0) g/dL Globulin (2.6-4.0) g/dL Albumin/Globulin Ratio (0.9-1.6) Triglycerides (0-200) mg/dL Cholesterol (50-200) mg/dL LDL Cholesterol, Calc (60-180) mg/dL VLDL Cholesterol (5-55) mg/dL HDL Cholesterol (40-60) mg/dL Cholesterol/HDL Ratio (3.3-6.0) Urine Opiates Screen POSITIVE (NEGATIVE) Ur Oxycodone Screen NEGATIVE (NEGATIVE) Urine Methadone Screen NEGATIVE (NEGATIVE) Ur Barbiturates Screen NEGATIVE (NEGATIVE) Ur Phencyclidine Scrn NEGATIVE (NEGATIVE) Ur Amphetamine Screen NEGATIVE (NEGATIVE) U Methamphetamines Scrn NEGATIVE (NEGATIVE) U Benzodiazepines Scrn NEGATIVE (NEGATIVE) U Cocaine Metab Screen NEGATIVE (NEGATIVE) U Marijuana (THC) Screen NEGATIVE (NEGATIVE) Ethyl Alcohol mg/dL Med Orders - Current: Current Medications Acetaminophen (Tylenol) 650 mg PO Q4H PRN PRN Reason: Pain (mild 1-3) Fluticasone Propionate (Flonase) 0 gm NASBOTH DAILY [facility] Last Admin: 09/11/18 08:59 Dose: 1 spray Metoprolol Succinate (Toprol Xl) 25 mg PO BID [facility] Last Admin: 09/11/18 08:59 Dose: Not Given Nitroglycerin (Nitrostat) 0.4 mg SL Q5M PRN PRN Reason: Chest Pain Last Admin: 09/10/18 13:22 Dose: 0.4 mg Ondansetron HCl (Zofran) 4 mg IVPUSH Q4H PRN PRN Reason: Nausea Sodium Chloride (Saline Flush) 10 ml FLUSH ASDIRECTED PRN PRN Reason: Keep Vein Open Last Admin: 09/10/18 12:59 Dose: 10 ml Sodium Chloride (Saline Flush) 2.5 ml FLUSH ASDIRECTED PRN PRN Reason: Keep Vein Open Last Admin: 09/10/18 12:59 Dose: 2.5 ml Discontinued Medications Aspirin (Aspirin) 324 mg PO ONETIME ONE Stop: 09/10/18 12:55 Last Admin: 09/10/18 12:59 Dose: 324 mg Aspirin (Aspirin) Confirm Administered Dose 324 mg .ROUTE .STK-MED ONE Stop: 09/10/18 12:54 Last Admin: 09/10/18 13:00 Dose: Not Given Sodium Chloride (Normal Saline) 250 mls @ 999 mls/hr IV .Bolus ONE Stop: 09/10/18 13:19 Last Admin: 09/10/18 13:06 Dose: 999 mls/hr Metoprolol Tartrate (Lopressor) 5 mg IVPUSH Q5M [facility] Stop: 09/10/18 13:11 Last Admin: 09/10/18 13:46 Dose: Not Given Metoprolol Tartrate (Lopressor) Confirm Administered Dose 5 mg .ROUTE .STK-MED ONE Stop: 09/10/18 12:54 Last Admin: 09/10/18 13:00 Dose: Not Given Morphine Sulfate (Morphine) 2 mg IVPUSH ONETIME ONE Stop: 09/10/18 13:28 Last Admin: 09/10/18 13:34 Dose: 2 mg Ondansetron HCl (Zofran) 4 mg IVPUSH ONETIME ONE Stop: 09/10/18 13:28 Last Admin: 09/10/18 13:34 Dose: 4 mg <Shaw Matthews J - Last Filed: 09/14/18 11:26> - Patient Data Vitals - Most Recent: Last Vital Signs Temp 36.6 C 09/11/18 08:00 Pulse 51 L 09/11/18 08:59 Resp 14 09/11/18 08:00 BP 121/78 09/11/18 08:00 Pulse Ox 97 09/11/18 08:00 Med Orders - Current: Current Medications Discontinued Medications Acetaminophen (Tylenol) 650 mg PO Q4H PRN PRN Reason: Pain (mild 1-3) Aspirin (Aspirin) 324 mg PO ONETIME ONE Stop: 09/10/18 12:55 Last Admin: 09/10/18 12:59 Dose: 324 mg Aspirin (Aspirin) Confirm Administered Dose 324 mg .ROUTE .STK-MED ONE Stop: 09/10/18 12:54 Last Admin: 09/10/18 13:00 Dose: Not Given Fluticasone Propionate (Flonase) 0 gm NASBOTH DAILY [facility] Last Admin: 09/11/18 08:59 Dose: 1 spray Sodium Chloride (Normal Saline) 250 mls @ 999 mls/hr IV .Bolus ONE Stop: 09/10/18 13:19 Last Admin: 09/10/18 13:06 Dose: 999 mls/hr Metoprolol Succinate (Toprol Xl) 25 mg PO BID [facility] Last Admin: 09/11/18 08:59 Dose: Not Given Metoprolol Tartrate (Lopressor) 5 mg IVPUSH Q5M [facility] Stop: 09/10/18 13:11 Last Admin: 09/10/18 13:46 Dose: Not Given Metoprolol Tartrate (Lopressor) Confirm Administered Dose 5 mg .ROUTE .STK-MED ONE Stop: 09/10/18 12:54 Last Admin: 09/10/18 13:00 Dose: Not Given Morphine Sulfate (Morphine) 2 mg IVPUSH ONETIME ONE Stop: 09/10/18 13:28 Last Admin: 09/10/18 13:34 Dose: 2 mg Nitroglycerin (Nitrostat) 0.4 mg SL Q5M PRN PRN Reason: Chest Pain Last Admin: 09/10/18 13:22 Dose: 0.4 mg Ondansetron HCl (Zofran) 4 mg IVPUSH ONETIME ONE Stop: 09/10/18 13:28 Last Admin: 09/10/18 13:34 Dose: 4 mg Ondansetron HCl (Zofran) 4 mg IVPUSH Q4H PRN PRN Reason: Nausea Sodium Chloride (Saline Flush) 10 ml FLUSH ASDIRECTED PRN PRN Reason: Keep Vein Open Last Admin: 09/10/18 12:59 Dose: 10 ml Sodium Chloride (Saline Flush) 2.5 ml FLUSH ASDIRECTED PRN PRN Reason: Keep Vein Open Last Admin: 09/10/18 12:59 Dose: 2.5 ml - Free Text/Narrative Note: I have seen and evaluated the patient. I have discussed findings and treatment plan with the resident. I agree with the assessment and plan outlined in the following note.
== END 2018-09-11 12:30 | disposition home or self-care (01) ==
LOC: MW.ED 12:43 → MW.ICU 14:17 → MW.MS 09-11 01:14
PROVIDERS: ADMIT Internal Medicine; ATTEND Internal Medicine
DX: R07.89 Other chest pain (principal); R00.2 Palpitations; R20.2 Paresthesia of skin; R00.0 Tachycardia, unspecified; I10 Essential (primary) hypertension; F17.290 Nicotine dependence, other tobacco product, uncomplicated; Z82.49 Family history of ischemic heart disease and other diseases of the circulatory system; Z79.82 Long term (current) use of aspirin; Z79.899 Other long term (current) drug therapy
CPT/HCPCS: 36415; 70450; 71045; 80053; 80061; 80305; 83036; 84484; 85025; 96374; 96375; 99285; A9270; G0480; J2270; J2405; J3490; J7040; G0378